=== PATIENT | female | born 1960 | race Caucasian/White ===

== ENCOUNTER → 2024-09-15 | Outpatient (CLI) | payer MEDICARE, OTHER ==
--- NOTE | 2024-09-15 20:44 | MR ---
INDICATION: Patient age:Female; 64 years old; Reason for study: M54.14; PHH. COMPARISON: No priors. TECHNIQUE: Multi planar, multi sequence imaging was performed utilizing: T1-weighted, T2-weighted, an d turbo inversion recovery imaging of the thoracic spine. The patient was not given Gadolinium. FINDINGS: The thoracic vertebral bodies have preserved heights and alignment. The osseous structure have normal signal intensity. Thoracic spinal cord appears unremarkable. Multilevel disc desiccation. Tiny Schmo rl's node involving the superior endplate of the T5 vertebral body without edema. Tiny central disc protrusion at T7-T8, T8-T9, T9-T10, and T10-T11 without significant spinal canal st enosis. These do not abut the ventral spinal cord. Minimal broad base disc bulge at T11-T12 without s ignificant spinal canal stenosis. No significant neuroforaminal stenosis of the thoracic spine identi fied. Broad-based disc bulge at C6-C7 on with mild spinal canal stenosis. No abnormal STIR signal deepthi ntified. IMPRESSION: 1. Mild multilevel degenerative disc disease of the mid to lower thoracic spine as described above. No significant spinal canal or neural foraminal stenosis of the thoracic spine. 2. Degenerative disc disease at C6-C7 with mild spinal canal stenosis. [facility], , 09/15/2024 8:41 PM
== END | disposition home or self-care (01) ==
LOC: RADMRIMAIN 19:45
PROVIDERS: ATTEND Physician Assistant Medical
DX: M48.02 Spinal stenosis, cervical region (principal); M51.14 Intervertebral disc disorders with radiculopathy, thoracic region; M50.323 Other cervical disc degeneration at C6-C7 level
CPT/HCPCS: 72146